=== PATIENT | male | born 1995 | race Caucasian/White ===

== ENCOUNTER 2022-08-26 01:18 | Emergency (ER) | payer BC, SELFPAY ==
[2022-08-26 01:21] VITALS: BP 140/82; PULSE 80; RESP 18; O2SAT 100; BMI 36.9
[2022-08-26 01:32] VITALS: PULSE 76
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
--- NOTE | 2022-08-26 01:35 | XR_ITS ---
The [address] [address] Patient Name: GOMEZ SOMERS MRN: [id number] date: 1995 Sex: M Assigned Patient Location: ER Current Patient Location: ER Accession/Order Number: [id number] Exam Date: 08/26/2022 01:50 Report Date: 08/26/2022 03:34 At the request of: GREY ARANGO Procedure: XR chest 2V EXAM: XR chest 2V HISTORY: chest pain COMPARISON: None available. TECHNIQUE: Frontal and lateral views of the chest are obtained. FINDINGS: The cardiac mediastinal silhouette is nonenlarged. Pulmonary vascular markings are within normal limits. There is no focal airspace consolidation, sizable effusion or pneumothorax. The osseous structures are grossly intact. IMPRESSION: No acute cardiopulmonary process identified. Electronically authenticated by: NASRIN DUPREE Date: 08/26/2022 03:34
--- NOTE | 2022-08-26 01:35 | ECG_ITS ---
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
[2022-08-26 01:42] LABS: Basophils Absolute Auto 0.1 10^3/uL (0.0-0.1); Basophils Percent Auto 0.6 % (0.2-2.0); Eosinophils Absolute Auto 0.2 10^3/uL (0.0-0.7); Eosinophils Percent Auto 2.8 % (0.9-7.0); Hematocrit 42.5 % (42.0-54.0); Hemoglobin 14.8 g/dL (14.0-18.0); Immature Granulocytes Abs Auto 0.01 10^3/uL (0.00-0.03); Immature Granulocytes Pct Auto 0.1 % (0.0-0.5); Lymphocytes Absolute Auto 3.9 10^3/uL (1.2-3.8); Lymphocytes Percent Auto 50.4 % (20.5-60.0); Mean Corpuscular HGB Conc 34.8 g/dL (29.9-35.2); Mean Corpuscular Hemoglobin 30.6 pg (25.9-34.0); Mean Platelet Volume 11.6 fL (9.5-13.5); Monocytes Absolute Auto 0.7 10^3/uL (0.3-0.8); Monocytes Percent Auto 8.8 % (1.7-12.0); Neutrophils Absolute Auto 2.9 10^3/uL (1.4-6.5); Neutrophils Percent Auto 37.3 % (43.0-75.0); Platelet Count 184 10^3/uL (150-450); Red Blood Count 4.83 10^6/uL (4.70-6.10); Red Cell Distribution Width 11.9 % (11.0-15.0); White Blood Count 7.7 10^3/uL (4.0-11.0)
[2022-08-26 01:50] LABS: D Dimer 0.19 mg/L FEU (<=0.59)
[2022-08-26 01:55] LABS: Anion Gap 10.7; BUN Creatinine Ratio 13.1; Carbon Dioxide 28.1 mmol/L (21.0-32.0); Chloride 106 mmol/L (98-107); Estimated GFR (African America >60 (>=60); Estimated GFR (Non-African Ame >60 (>=60); Glucose 119 mg/dL (74-106); Potassium 3.8 mmol/L (3.5-5.1); Sodium 141 mmol/L (136-145)
[2022-08-26 02:03] VITALS: BP 121/81; PULSE 71; RESP 20; O2SAT 97
[2022-08-26 03:04] VITALS: BP 125/81; PULSE 81; RESP 14; O2SAT 98
[2022-08-26 03:53] VITALS: BP 126/69; PULSE 88; RESP 20; O2SAT 95
[2022-08-26 04:41] VITALS: BP 136/84; PULSE 60; RESP 21; O2SAT 97
[2022-08-26 05:00] LABS: Troponin I High Sensitivity 8.2 pg/mL (4.0-76.1)
== END 2022-08-26 05:31 | disposition home or self-care (01) ==
PROVIDERS: Emergency Provider Internal Medicine
DX: R07.89 Other chest pain (principal)
CPT/HCPCS: 36415; 71046; 80048; 84484; 85025; 85378; 93005; 99285

== ENCOUNTER 2025-02-23 15:34 | Outpatient (OUT) | payer OTHER, SELFPAY ==
--- OUTSIDE RECORDS SUMMARY | 2025-02-23 15:39 | XMS_ITS | Clinical Summary ---
Author Organization [facility] Address [address], [address] [place] [address] Care Team Providers Care Cold Roller Name Role Phone Beryl Cabral APRN - DIESEL POWER SHOVEL OPERATOR Primary Care Provider Allergies No known active allergies Medications MedicationSigDispense QuantityRefillsLast FilledStart DateEnd DateStatus Blood Glucose Monitoring Suppl ([employer] BLOOD GLUCOSE METER) w/Device KIT Indications:Hypoglycemia1 each by Does not apply route 2 times daily 1 kit 5Active blood glucose test strips (GLUCOSE METER TEST) strip Indications:Prediabetes,Hypoglycemia1 each by In Vitro route in the morning, at noon, and at bedtime As needed. 100 each 5Active busPIRone (BUSPAR) 10 MG tablet Indications:Anxiety,Panic attacks,Anxiety and depressionTake 1 tablet by mouth 2 times daily 180 tablet ctive omeprazole (PRILOSEC) 20 MG delayed release capsule Indications:Gastroesophageal reflux disease, unspecified whether esophagitis presentTake 1 capsule by mouth every morning (before breakfast) 90 capsule ctive Active Problems ProblemNoted DateDiagnosed NtagHvifgha11/28/4485Dmqwuuynvcxi81/28/2025Elevated ALT /28/2025Panic kmscymy6904/25/20240373Lmhklfrxono62/28/2025Obesity (BMI 30-39.9)04/25/2024Vitamin D npstfwvaml51/28/2025nxiety and depression 10/18/2022Obesity, Class III, BMI 40-49.9 (morbid obesity)09/06/2022Eye muscle anopumex27/12/2023Sensation of chest mlwopxpf65/12/2023astroesophageal reflux akzkndi7309/06/2022Light chalvt1409/06/2022lurred gwxfwx1009/06/2022elching symptom 09/06/2022 Resolved Problems ProblemNoted DateDiagnosed DateResolved DateScreening for lipid disorders Encounters DateTypeDepartmentCare RgbeAizjwbrpsvx10/14/2025 11:20 AM ESTOffice Visit [facility] [address] [place] [address] Beryl Cabral, ARDEN - ALAYNA Wellness examination (Primary Dx); Sterilization consult; Anxiety; Panic attacks; Vitamin D deficiency; Prediabetes; Obesity (BMI 30-39.9); Belching symptom; Gastroesophageal reflux disease, unspecified whether esophagitis present; Anxiety and depressionfrom Last 3 Months Family History Medical HistoryRelationNameCommentsDiabetesFatherDiabetesPaternal Grandfather CancerPaternal GrandmotherRelationNameStatusCommentsFatherPaternal Grandfather Paternal Grandmother Social History Tobacco UseTypesPacks/DayYears UsedDateSmoking Tobacco: FormerCigarettes0.58.3 02/26/2013 - 06/26/2021mokeless Tobacco: Former Tobacco Cessation:Counseling Given: Not Answered Alcohol UseStandard Drinks/MbllIkojmxsgRjw96 (1 standard drink = 0.6 oz pure alcohol)[facility] UtilitiesAnswerDate RecordedIn the past 12 months has the [employer], [employer], oil, or water [employer] threatened to shut off services in your home?No 04/25/2024Overall Financial Resource Strain (CARDIA)AnswerDate RecordedHow hard is it for you to pay for the very basics like food, housing, medical care, and heating?Not hard at all01/18/2024HQ-2AnswerDate RecordedPHQ-9 Total Score8 07/09/2024Hunger Vital SignAnswerDate RecordedWithin the past 12 months, you worried that your food would run out before you got the money to buymore.Never true04/25/2024Within the past 12 months, the food you bought just didn't last and you didn't have money to get more.Never true04/25/2024PRAPARE - TransportationAnswerDate RecordedIn the past 12 months, has lack of transportation kept you from medical appointments or from getting medications?No 04/25/2024In the past 12 months, has lack of transportation kept you from meetings, work, or from getting things needed for daily living?No04/25/2024 Housing Stability Vital SignAnswerDate RecordedUnable to Pay for Housing in the Last YearNot on file09/06/2022Number of Places Lived in the Last YearNot on file 09/06/2022In the last 12 months, was there a time when you did not have a steady place to sleep or slept in ashelter (including now)?No09/06/2022Housing Stability Vital SignAnswerDate RecordedIn the last 12 months, was there a time when you were not able to pay the mortgage or rent on time?No04/25/2024In the past 12 months, how many times have you moved where you were living? At any time in the past 12 months, were you homeless or living in a detention (including now)?No04/25/2024Food InsecurityAnswerDate RecordedWithin the past 12 months, you worried that your food would run out before you got the money to buy more.Within the past 12 months, the food you bought just didn't last and you didn't have money to get more.Sex and Gender InformationValue Date RecordedSex Assigned at ObjmeFssl27/25/2025 8:10 AM EDTLegal SexMale 04/07/2012 6:44 PM ESTGender JnkznjwgPsxk18/25/2025 8:10 AM EDTSexual OrientationNot on file Last Filed Vital Signs Vital SignReadingTime TakenCommentsBlood Wijqqiqi974/80103/11/2024 11:52 AM EST Bksau755401/09/2025 11:52 AM CZIIorwzjpwehr68.3 ??C (97.4 ??F)01/09/2025 11:52 AM ESTRespiratory Tizl213803/11/2024 11:52 AM ESTOxygen Itobygkliy11%01/09/2025 11:52 AM ESTInhaled Oxygen Concentration--Jthvpf165.5 kg (290 lb)01/09/2025 11:52 AM OUWSfiniw567.9 cm (6')01/09/2025 11:52 AM ESTBody Mass Index39.33103/11/2024 11:52 AM EST Plan of Treatment Health MaintenanceDue DateLast DoneCommentsVaricella vaccine (1 of 2 - 13+ 2- dose series)2009Hepatitis A vaccine (2 of 2 - 2-dose series)03/20/2010 09/17/2009HIV djrbhq3903/12/2011Hepatitis C ryaeec5503/12/2014Flu vaccine (#1) COVID-19 Vaccine (2024- season)501/04/2021, 06/17/2020, 1A1C test (Diabetic or Prediabetic)6004/25/2024, 01/18/2024, 3Depression Ajzyeodkqe05, 07/09/2024 DTaP/Tdap/Td vaccine (8 - Td or Tdap), 09/17/2009, 11/20/2001, Additional history existsHepatitis B hcybyhtAlttdvxrw72/14/1997, 1996, 1996Hib yolbwurSjlzeuvjn73/28/1999, 1996, 1996, Additional history existsPolio bcsqvniMrkvjcgzd89/25/2002, 03/25/1998, 1996, Additional history existsMeningococcal (ACWY) vaccineAged Out 09/17/2009No longer eligible based on patient's age to complete this topicHPV qxobrssQvheoczpk71/24/2011, 11/25/2009, 09/17/2009Depression ScreenDiscontinued 07/09/2024, 07/09/2024Meningococcal B vaccineAged OutNo longer eligible based on patient's age to complete this topicPneumococcal 0-49 years VaccineAged OutNo longer eligible based on patient's age to complete this topic Procedures Procedure NamePriorityDate/TimeAssociated DiagnosisCommentsHEMOGLOBIN L4UIcyrurm 04/25/2024 Vitamin D deficiency Obesity (BMI 30-39.9) Prediabetes Light headed Dizziness Panic attacks Elevated ALT measurement Elevated AST (SGOT) from Last 3 Months or Most Recently Relevant to Health Maintenance Results * Hemoglobin A1C (04/25/2024)ComponentValueRef RangeTest MethodAnalysis Time Performed AtPathologist SignatureHemoglobin A1C5.5%Estimated Avg Glucose Specimen (Source)Anatomical Location / LateralityCollection Method / Volume Collection TimeReceived TimeBloodBLOOD SPECIMEN / Alqunbs4104/25/2024 Narrative Authorizing ProviderResult TypeResult StatusKelivis Cabral [employer] PRODUCTION MANAGER - DIESEL POWER SHOVEL OPERATOR CHEMISTRY ORDERABLESFinal Result from Last 3 Months or Most Recently Relevant to Health Maintenance Insurance Care Teams Team MemberRelationshipSpecialtyStart DateEnd Date Beryl Cabral, [employer] PR[employer] MANAGER - DIESEL POWER SHOVEL OPERATOR [address] [place] [address] PCP - GeneralFamily Medicine09/06/22
--- OUTSIDE RECORDS SUMMARY | 2025-02-23 15:39 | XMS_ITS | Clinical Summary ---
Author Organization [facility] Address [address] [place] [address] Care Team Providers Care Apartment House Manager Name Role Phone Unavailable Primary Care Provider Unavailabl e Social History Tobacco UseTypesPacks/DayYears UsedDateSmoking Tobacco: Never AssessedSex and Gender InformationValueDate RecordedSex Assigned at BirthNot on fileLegal Sex Male08/05/2024 4:07 PM EDTGender IdentityNot on fileSexual OrientationNot on file Plan of Treatment Health MaintenanceDue DateLast DoneCommentsInfluenza Vaccine (#1)10/27/2024 Pneumococcal Vaccine: Pediatrics (0 to 5 Years) and At-Risk Patients (6 to 64 Years)Aged OutNo longer eligible based on patient's age to complete this topic Insurance
[2025-02-23 16:14] LABS: Hematocrit 42.4 % (42.0-54.0); Hemoglobin 15.3 g/dL (14.0-18.0); Immature Granulocytes Abs Auto 0.01 10^3/uL (0.00-0.03); Immature Granulocytes Pct Auto 0.2 % (0.0-0.5); Lymphocytes Absolute Auto 2.2 10^3/uL (1.2-3.8); Mean Corpuscular HGB Conc 36.1 g/dL (29.9-35.2); Mean Corpuscular Hemoglobin 30.6 pg (25.9-34.0); Mean Corpuscular Volume 84.8 fL (80.0-94.0); Platelet Count 178 10^3/uL (150-450); Red Blood Count 5.00 10^6/uL (4.70-6.10); White Blood Count 5.5 10^3/uL (4.0-11.0)
[2025-02-23 16:41] LABS: Alanine Aminotransferase 127 U/L (16-63); Albumin Globulin Ratio 1.3; Albumin Level 4.4 g/dL (3.4-5.0); Alkaline Phosphatase 75 U/L (46-116); Anion Gap 14.3; Aspartate Amino Transferase 41 U/L (15-37); Blood Urea Nitrogen 12.0 mg/dL (7.0-18.0); Calcium 8.9 mg/dL (8.5-10.1); Carbon Dioxide 26.8 mmol/L (21.0-32.0); Chloride 101 mmol/L (98-107); Cholesterol 210 mg/dL (<=200); Estimated GFR (African America >60 (>=60 mL/min/1.73m^2); Estimated GFR (Non-African Ame >60 (>=60 mL/min/1.73m^2); Globulin 3.4 g/dL; Glucose 203 mg/dL (74-106); HDL Cholesterol 40 mg/dL (40-60); Potassium 4.1 mmol/L (3.5-5.1); Sodium 138 mmol/L (136-145); TSH W/ REFLEX FT4 1.513 uIU/mL (0.358-3.740); Total Protein 7.8 g/dL (6.4-8.2); Triglycerides 198 mg/dL (<=150); VLDL CHOLESTEROL 39.6 mg/dL
== END 2025-02-23 15:35 | disposition home or self-care (01) ==
LOC: LAB 15:36
DX: Z00.00 Encounter for general adult medical examination without abnormal findings (principal); F41.9 Anxiety disorder, unspecified; F41.0 Panic disorder [episodic paroxysmal anxiety]; E55.9 Vitamin D deficiency, unspecified; R73.03 Prediabetes; E66.9 Obesity, unspecified; R14.2 Eructation; K21.9 Gastro-esophageal reflux disease without esophagitis
CPT/HCPCS: 36415; 80053; 80061; 82306; 83036; 84443; 85025